=== PATIENT | female | born 1950 | race Caucasian/White ===

== ENCOUNTER → 2020-10-08 | Outpatient (CLI) | payer MEDICARE ==
[~2020-10-08] MED LIST: B COMPLEX1 EACH PO; BENICAR20 MG PO; CENTRUM SILVER1 EAC1 PO; HYDROCODON-ACE1 EAC4 PO; MAGNESIUM400 M2 PO; MIRALAX17 GM PO; MOVE FREE PLUS1 EACH PO; NAPROSYN500 MG PO; VITAMIN C500 M4 PO; VITAMIN D325 MCG PO
[2020-10-08 11:06] LABS: HEMOGLOBIN 13.6 gm/dl (12.3-15.3); RED BLOOD COUNT 4.34 M/UL (4.00-5.10)
== END ==
LOC: OPSV2 10:00
PROVIDERS: Nurse Practitioner Pediatrics
DX: Z01.818 Encounter for other preprocedural examination (principal); N81.4 Uterovaginal prolapse, unspecified; R91.8 Other nonspecific abnormal finding of lung field; I10 Essential (primary) hypertension
CPT/HCPCS: 36415; 71046; 80053; 85025; 85610

== ENCOUNTER 2020-10-14 10:04 | Day surgery (SDC) | payer MEDICARE ==
[~2020-10-14] VITALS: Ht 165.1 cm; Wt 71.7 kg
[2020-10-14] MEDS ORDERED: BENICAR20 MG PO (10:55)
[2020-10-14] MEDS ORDERED: VITAMIN C500 M4 PO (10:56)
[2020-10-14] MEDS ORDERED: B COMPLEX1 EACH PO (10:56)
[2020-10-14] MEDS ORDERED: CENTRUM SILVER1 EAC1 PO (10:57)
[2020-10-14] MEDS ORDERED: VITAMIN D325 MCG PO (10:57)
[2020-10-14] MEDS ORDERED: MAGNESIUM400 M2 PO (10:58)
[2020-10-14] MEDS ORDERED: MOVE FREE PLUS1 EACH PO (10:59)
[2020-10-14] MEDS ORDERED: HYDROCODON-ACE1 EAC4 PO (14:07)
[2020-10-15 04:34] LABS: HEMOGLOBIN 12.4 gm/dl (12.3-15.3)
[2020-10-15] MEDS ORDERED: MIRALAX17 GM PO (09:46)
[2020-10-15] MEDS ORDERED: NAPROSYN500 MG PO (09:47)
--- NOTE | 2020-10-15 10:02 | NUR ---
INSTRUCTED PATIENT ON IMPORTANCE OF TAKING STOOL MEDS SCHEDULED POST SURGERY. NEW MEDS AND SIDE EFFECTS. PAIN SCRIPT AT PREFERRED PHARMACY, FOLLOW UP APPOINTMENT, VERBALIZED UNDERSTANDING. ARNAUD KULKARNI R.N.
== END 2020-10-15 11:21 | disposition home or self-care (01) ==
LOC: OR 10:04 → M/S 15:51 → OR 15:55 → M/S 10-15 11:21 → OR 10-15 11:21
PROVIDERS: Obstetrics & Gynecology
PROC: 0USG7ZZ Reposition Vagina, Via Natural or Artificial Opening (ICD-10-PCS; principal; 2020-10-14 14:10)
PROC: 0JQC0ZZ Repair Pelvic Region Subcutaneous Tissue and Fascia, Open Approach (ICD-10-PCS; principal; 2020-10-14 14:10)
PROC: 0UT97ZZ Resection of Uterus, Via Natural or Artificial Opening (ICD-10-PCS; principal; 2020-10-14 14:10)
DX: N81.4 Uterovaginal prolapse, unspecified (principal); N72 Inflammatory disease of cervix uteri; N81.82 Incompetence or weakening of pubocervical tissue; N36.41 Hypermobility of urethra; I10 Essential (primary) hypertension; Z79.899 Other long term (current) drug therapy; Z20.822 Contact with and (suspected) exposure to COVID-19; Z98.51 Tubal ligation status
CPT/HCPCS: 36415; 85014; 85018; C1769; J0690; J1100; J1170; J2001; J2405; J2704; J2710; J2795; J3010; J7120; U0003